=== PATIENT | female | born 1990 | race Caucasian/White ===

== ENCOUNTER 2024-09-06 06:30 | Day surgery (SDC) | payer BC ==
[2024-09-04 16:53] LABS: Absolute Eosinophils 0.1 K/uL (0-0.5); Absolute Lymphocytes (CBC) 1.9 K/uL (0.7-4.9); Absolute Monocytes 1.1 K/uL (0.1-1.3); Absolute Neutrophil 3.9 K/uL (1.8-8.0); Basophils % 0.4 % (0-1.3); Eosinophils % 0.9 % (0-4.4); Hematocrit 40.1 % (36.0-45.0); Hemoglobin 14.3 g/dL (12.0-15.0); Lymphocytes % 27.3 % (15.3-44.8); MCH 33.7 pg (27.0-35.0); MCHC 35.7 g/dL (32.0-36.0); MCV 94.2 fL (80-100); MPV 8.1 fL (7.6-11.3); Monocytes % 15.4 % (3.3-12.3); Nucleated Red Blood Cells % 0.1 % (0-0); Platelets 235 thou/uL (152-406); RBC Red Blood Cell Count 4.25 M/uL (3.86-4.86); Red Cell Distribution Width 12.3 % (12.1-15.2)
[2024-09-06] MEDS: Ringers Lactate 1,000 ML IV ONE ×2 (06:38→09:40)
[2024-09-06] MEDS ORDERED: ONDANSETRON 4 MG/2 ML VIAL ONE ×2 (06:52→10:14)
[2024-09-06] MEDS ORDERED: NEOSTIGMINE 1 MG/ML -10 ML VIAL ONE (06:52)
[2024-09-06] MEDS ORDERED: GLYCOPYRROLATE 0.2 MG/ML SYR ONE (06:52)
[2024-09-06] MEDS ORDERED: LIDOCAINE 2% MPF 5 ML VIAL ONE (06:52)
[2024-09-06] MEDS ORDERED: ROCURONIUM 50 MG/5 ML VIAL IV ONE ×2 (06:52→07:59)
[2024-09-06] MEDS ORDERED: propofoL 200 MG/20 ML VIAL IV ONE (06:53)
[2024-09-06] MEDS ORDERED: FENTANYL CITR 100 MCG/2 ML ONE ×2 (06:54→07:59)
[2024-09-06] MEDS ORDERED: MIDAZOLAM HCL 2 MG/2 ML INJ ONE (06:56)
[2024-09-06] MEDS: SCOPOLAMINE HYDROBROMIDE PATCH TD ONE (07:00)
[2024-09-06 07:07] LABS: Specific Gravity 1.028 (1.005-1.030); Urine Bacteria <20 /HPF (<20); Urine Bilirubin NEGATIVE (Negative); Urine Blood Negative (Negative); Urine Clarity Extremely Turbid (Clear); Urine Color Yellow (Yellow); Urine Culture Reflex Order NOT NEEDED; Urine Glucose NEGATIVE (Negative); Urine Ketones NEGATIVE (Negative); Urine Microscopic Reflex YN ORDER UMIC; Urine Mucus Slight /HPF (None Seen); Urine Nitrite NEGATIVE (Negative); Urine Protein NEGATIVE (Negative); Urine RBC <5 /HPF (None Seen); Urine Urobilinogen Normal (Normal); Urine WBC <5 /HPF (<5)
[2024-09-06] MEDS: CEFAZOLIN SODIUM 2 GM/VIAL ONE (07:40)
[2024-09-06] MEDS ORDERED: dexAMETHasone 10 MG/ML VIAL ONE (07:59)
[2024-09-06] MEDS: BUPIVACAINE 0.25% PF 30 ML VIAL ONE (08:18)
[2024-09-06] MEDS ORDERED: Mastisol Adhesive Liq ONE (09:37)
[2024-09-06] MEDS ORDERED: KETOROLAC 30 MG/ML INJ ONE (09:41)
[2024-09-06] MEDS ORDERED: MEPERIDINE HCL 25 MG/ML SYR IM PRN (10:30)
[2024-09-06] MEDS ORDERED: PROMETHAZINE 25 MG TABLET PO PRN (10:30)
[2024-09-06] MEDS ORDERED: PROMETHAZINE INJ 25 MG/ML AMP IV PRN (10:30)
--- NOTE | 2024-09-06 10:34 | P.BOP ---
Preoperative diagnosis: Pelvic pain, Endometriosis, Deep dyspareunia Postoperative diagnosis: same, anterior CDS, bilateral lat garcia, USL Primary procedure: TLH, Bilateral ureterolysis, Endometriosis excision Child & Adolescent Psychiatrist: Aisha Palacio Estimated blood loss: 25 Specimen: UT, DEIDRA LAT WALL/usl ENDO, ANT RT cds ENDO Findings: B/L endo on lateral garcia, periuretric scar, USLs Anesthesia: General Complications: None Fluids & blood products: 1000 LR UO 100 Transferred to: Recovery Room Condition: Good
[2024-09-06] MEDS: ONDANSETRON 4 MG/2 ML VIAL ONE (10:56)
[2024-09-06] MEDS: HYDROMORPHONE HCL 2 MG/ML inj ONE (10:56)
[2024-09-06 11:58] VITALS: TEMP 97.3
--- NOTE | 2024-09-06 12:11 | OP ---
Date of Procedure: 09/06/2024 Surgeon: Toshia Soto MD Sign Language Teacher: Aisha Dowell Preoperative Diagnoses: Pelvic pain, endometriosis, deep dyspareunia. Postoperative Diagnoses: Pelvic pain, endometriosis, deep dyspareunia, anterior cul-de-sac, bilatera l lateral garcia and bilateral uterosacral ligament deep infiltrating endometriosis, retroperitoneal s car on the ureters bilaterally. Procedures Performed: Total laparoscopic hysterectomy; bilateral ureterolysis, left greater the righ t; and endometriosis excision. Estimated Blood Loss: 25. Urine Output: 100. Fluids: 1000. Anesthesia: General endotracheal. Complications: No complications. Drains: No drains. Patient's Condition: Stable. Specimens: Uterus, bilateral lateral wall and uterosacral ligament endo, and anterior right cul-de-s ac endometriosis. Findings: Tubes were absent. Ovaries were completely unremarkable. Most of the visualized endometr iosis has been removed. Endometriosis was noted with infiltration into the uterosacral ligaments bilaterally. The left later al wall endometriosis was much more significant and prominent than the right. Periureteric scar was denser on the left than the right. Anterior cul-de-sac endometriosis was mostly pale without any col or to it. Both ureters were without any electrical, mechanical, or thermal injuries to them. Indication: The patient is a 34-year-old female with significant pelvic pain, dysmenorrhea, and deep dyspareunia. She is a known patient to the practice and had prior evaluation and surgery in 2022 fo r pelvic pain, abnormal bleeding, and endometriosis. She had bilateral salpingectomy and endometrios is excision by me. The patient was significantly worse progressively over time. Although her bleeding was slightly abno rmal, her pain is the most bothersome symptom. We discussed about options of medical treatment. She was prescribed Myfembree for ovulation suppression. Her symptoms have not improved, but it was diff icult for her to try the Myfembree due to many reasons. She has lost significant weight by 60 pounds on Wegovy. Pain and discomfort and their affect on quality of life has continued, and therefore we discussed about the current option. The patient wanted to proceed with definitive surgery. Procedure In Detail: After informed consent was verified, the patient was taken back to the OR, plac ed in a supine fashion on the operating table. General anesthesia was given. 2 g of Ancef was given . SCDs were placed. She was grounded. Arms were tucked by the side. Positioning was checked. Abd omen was prepped with ChloraPrep; vulva, vagina, and perineum with Betadine and draped in a sterile fashion. After time-out was done, speculum was placed to expose the cervix. Anterior lip was grasped with sin gle-tooth tenaculum, dilated to 16-Kyrgyz and a large cup uterine manipulator was introduced and fixe d in place. Lazo was placed to drain the bladder and attached to a drainage bag. This area was the n draped. 1 cm infraumbilical incision was made with the scalpel using the open laparoscopy technique. Fascia was incised, tagged with 0 Vicryl sutures. Peritoneum was entered sharply. Ariela introduced. The site of entry was checked and was unremarkable. Upper abdominal surface was unremarkable as well. T he patient was placed in Trendelenburg. A left lateral 10/12 suprapubic ports were placed under dire ct vision. The patient was in Trendelenburg. Colonic epiploica were gathered with 3-0 Monocryl sutu re and used for retraction through the left upper quadrant port using the Jayden-Shirley needle. On ce all these were set in place and retraction was appropriate, procedure was started. Endometriosis excision: The lateral garcia were inspected in the posterior aspect and there were pale lesions of endometriosis on bilateral sides, left greater than the right, so I proceeded to go ahead and excise endometriosis. This was done by scoring a peritoneal incision all around the endometriot ic implants that were also spreading onto the serosa of the posterior uterine wall. Once underlying tissues were dissected, endometriosis was excised using the bipolar LigaSure and handed out for perma barb pathology. The endometriotic implants on the uterosacral ligament were also clearly excised all the way down to the insertion. There were still some implants left on the posterior aspect of the u terus on the peritoneum, which were left with the specimen. Similar dissection performed on the opposite side, excising the endometriosis from the peritoneum. Anterior cul-de-sac endometriosis was noted on the right lateral aspect along the bladder pillar and this was excised. Some of it was left with the serosa of the uterine specimen as well. Ureterolysis on both sides: This was first done once the peritoneal implants were scored all the way around. Then, the retroperitoneal fibrosis had to be dissected and in order for me to be able to not only remove the endometriosis and also release the ureter from its scar. The ureter was identified on the left lateral wall, inferior to the pelvic brim. Peritoneum opened superior to it. Then dissection was carried right on the peritoneum to detach the sheath of the ureter from the medi al leaf of the broad ligament and once this was done in 1 spot, this dissection plane was carried to separate the ureter entirely from the medial aspect of the broad ligament, dissecting it laterally, p reserving its blood supply. Dissection was taken all the way to the ureteric tunnel. The uterine ar kade and vein were . The tunnel was visualized and the scar across the ureter was carefully cauterized and cut, and the ureter appeared to have normal peristalsis without any evidence of elect rical, mechanical, or thermal injury. Right ureterolysis: This was also performed in the distal one-half of the pelvic ureter by opening u p the ureter from the sidewalls and the medial leaf of the broad ligament. Then, once this was isola jeronimo on both sides, it was taken down to the ureteric tunnel preserving the periureteric blood supply. Once the peritoneal implants and the uterosacral ligament scar to the ureters were all released, th yuri I was able to go through excising the endometriosis. Hysterectomy: The utero-ovarian ligament, round ligament, and broad ligaments were taken down with t he LigaSure. The posterior and anterior peritoneum was opened up and attached to the eight planes of the dissection that were done in the past as above. Then, anterior bladder peritoneum was traced pr obably finding out the bladder borders and then anterior vaginal wall was dissected in the midline an d taken down on both sides. Vessels were isolated, cauterized, and cut with bipolar and monopolar, m ostly with the LigaSure. Then, cardinal ligaments were cauterized with a curved tip bipolar and the monopolar hook used to perform a circumferential colpotomy, and the specimen retrieved through the va ani. Vaginal occluder was placed. After thorough irrigation and suction were performed, there was a slight bleeder on the posterior cuff, which was cauterized with the bipolar. Then, closure with 2 simple angle sutures with 0 PDS and then 3 [id number] in the middle connecting all the anterior and posterior fascial tissues together as well as epithelium and burying them. Once this was all pe rformed and the cuff was closed, there was excellent hemostasis and ureters were unremarkable. The b ladder peritoneum was brought down to the posterior cul-de-sac peritoneum and a continuous running 3- 0 Monocryl suture was used to close the peritoneal lining. The bowel was released from the Monocryl suture. Both ovaries were intact and well vascularized. All the ports were removed under direct vis ion. The patient was recovered from anesthesia after being flattened out, fascial incisions closed w ith 0 Vicryl sutures at suprapubic and umbilical sites and all skin incisions with interrupted 4-0 Mo nocryl. Lazo and occluder were removed. Instrument, needle, and sponge counts were correct. She w as taken to the PACU in stable condition. She will follow up in 1 week and 4 weeks postop. KYM/SANDRA Voice ID: [id number] Report ID: [id number]
[2024-09-06] MEDS ORDERED: IBUPROFEN 400 MG TAB ONE (12:16)
[2024-09-06] MEDS ORDERED: IBUPROFEN 200 MG TAB PO ONE (12:16)
[2024-09-06] MEDS: IBUPROFEN 200 MG TAB PO PRN (12:20)
[2024-09-06] MEDS ORDERED: HYDROCODONE/APAP 5/325 MG TAB ONE (13:13)
[2024-09-06] MEDS: HYDROCODONE/APAP 5/325 MG TAB PO PRN (13:18)
[2024-09-06 15:04] VITALS: BP 122/61; O2SAT 98
== END 2024-09-06 14:55 | disposition home or self-care (01) ==
LOC: OR 06:30
PROVIDERS: ATTEND Obstetrics & Gynecology
PROC: 0DNW4ZZ Release Peritoneum, Percutaneous Endoscopic Approach (ICD-10-PCS; 2024-09-06)
PROC: 0TN74ZZ Release Left Ureter, Percutaneous Endoscopic Approach (ICD-10-PCS; 2024-09-06)
PROC: 0TN64ZZ Release Right Ureter, Percutaneous Endoscopic Approach (ICD-10-PCS; 2024-09-06)
PROC: 0UT94ZZ Resection of Uterus, Percutaneous Endoscopic Approach (ICD-10-PCS; principal; 2024-09-06 07:30)
DX: N80.319 Endometriosis of the anterior cul-de-sac, unspecified depth (principal); N80.3B Deep endometriosis of the uterosacral ligament(s); N80.C19 Endometriosis of the anterior abdominal wall, unspecified depth; R10.2 Pelvic and perineal pain; N94.12 Deep dyspareunia
CPT/HCPCS: 85025; 81001; 36415; 86900; 86850; 86901; 88305; 88307; 58570; 49329; 50949; J2704; J2710; J2003; J2250; J1171; J3010 ×2; J1100; J2405 ×3; J7120 ×2; A4314